=== PATIENT | female | born 1990 | race Caucasian/White ===

== ENCOUNTER → 2024-12-13 | Outpatient (CLI) | payer SELFPAY ==
[2024-12-16 14:09] LABS: HPV APTIMA, High Risk Negative (Negative)
== END | disposition home or self-care (01) ==
LOC: LABSPEC 17:05
PROVIDERS: PCP Family Medicine; Visit Provider Nurse Practitioner Family
DX: Z12.4 Encounter for screening for malignant neoplasm of cervix (principal)
CPT/HCPCS: 87624; 88175; G0145

== ENCOUNTER → 2024-12-16 | Outpatient (CLI) | payer SELFPAY ==
--- NOTE | 2024-12-16 13:11 | US_ITS ---
PROCEDURE: PELVIC W/ TRANSVAGINAL 12/16/2024 REASON FOR EXAM: IRREGULAR MENSES; INFERTILITY TECHNIQUE: None FINDINGS: LMP: December 02, 2024. Measurements: Uterus: 6.9 cm x 4 cm x 3.3 cm with a volume of 47.11 mL Endometrial Thickness: 6.5 mm thickness in the right endometrium and 8.7 mm in the left endometrium. Heterogeneous echotexture. Right Ovary: 2.4 cm x 1.4 cm x 1.6 cm with a volume of 2.31 mL. Left Ovary: 3.8 cm x 3.7 cm x 2 cm with a volume of 14.8 mL. Uterus: Arcuate uterus. Prominent septation. Endometrium: Unremarkable Right ovary: Unremarkable Left ovary: Small cyst measuring 2.2 cm x 1.7 cm 1.7 cm in the left ovary. Other: No large pelvic mass identified. US/Pelvic w/ Transvaginal IMPRESSION: Arcuate uterus. Septation. Small left ovarian cyst. Reading Location: [id number]
== END | disposition home or self-care (01) ==
LOC: US 13:08
PROVIDERS: PCP Family Medicine; Referring Provider Nurse Practitioner Family; Visit Provider Nurse Practitioner Family
DX: N92.6 Irregular menstruation, unspecified (principal)
CPT/HCPCS: 76830; 76856